=== PATIENT | male | born 1965 | race Caucasian/White ===

== ENCOUNTER → 2018-03-19 14:53 | Outpatient (CLI) | payer OTHER, SELFPAY ==
--- NOTE | 2018-03-19 14:59 | RAD_ITS ---
STUDY: X-RAY CHEST REASON FOR EXAM: Male, 53 years old. Acute bronchitis TECHNIQUE: PA and lateral views of the chest. COMPARISON: None. FINDINGS: The lungs are clear and expanded. There is no demonstrated pleural abnormality. Normal size heart. Normal mediastinum and alfreda. Normal visualized pulmonary arteries. Normal visualized aortic arch and descending thoracic aorta. Normal visualized thoracic spine. Normal visualized ribs, clavicles, and shoulders. There is no demonstrated abnormality of the visualized soft tissue structures of the upper abdomen. RAD/Chest PA and Lateral IMPRESSION: No acute pulmonary process Electronically Signed: Hong Vickers MD at 14:52 EDT , Service support ,
== END ==
PROVIDERS: Family Provider Family Medicine; PCP Family Medicine; Visit Provider Family Medicine
DX: J20.9 Acute bronchitis, unspecified (principal)
CPT/HCPCS: 71046

== ENCOUNTER → 2018-06-06 14:38 | Outpatient (CLI) | payer OTHER, SELFPAY ==
[2013-12-02 08:32] VITALS: BMI 38.5
[2018-06-06 16:40] LABS: Vitamin D,25 Hydroxy 17.4 ng/mL (29.95-100.01)
[2018-06-06 16:45] LABS: Anion Gap 8 (5-15); BUN 19 mg/dL (7-18); BUN/Creat Ratio 16.1 RATIO (10-20); Calcium,Total 8.7 mg/dL (8.5-10.1); Chloride 106 mmol/L (98-107); Cholesterol 236 mg/dL (200); Creatinine, Serum 1.18 mg/dL (0.70-1.30); EST Glomerular Filtration Rate 68 mL/min (>60); Est Glom Filt Rate - Afr Amer 83 mL/min (>60); Glucose 81 mg/dL (74-106); High Density Lipoprotein 29 mg/dL; Potassium 4.1 mmol/L (3.5-5.1); Sodium Level 142 mmol/L (136-145); Thyroid Stim Hormone (TSH) 1.16 uIU/mL (0.358-3.74); Triglycerides 621 mg/dL
== END ==
PROVIDERS: Family Provider Family Medicine; PCP Family Medicine; Visit Provider Family Medicine
DX: Z00.00 Encounter for general adult medical examination without abnormal findings (principal)
CPT/HCPCS: 36415; 80048; 80061; 82306; 84153; 84443; G0103

== ENCOUNTER → 2018-09-08 09:40 | Outpatient (CLI) | payer OTHER, SELFPAY ==
[2013-12-02 08:32] VITALS: BMI 38.5
[2018-09-08 14:49] LABS: Cholesterol 202 mg/dL (200); High Density Lipoprotein 30 mg/dL; Triglycerides 467 mg/dL
== END ==
PROVIDERS: Family Provider Family Medicine; PCP Family Medicine; Visit Provider Family Medicine
DX: E78.5 Hyperlipidemia, unspecified (principal)
CPT/HCPCS: 36415; 80061

== ENCOUNTER → 2019-03-24 09:55 | Outpatient (CLI) | payer OTHER, SELFPAY ==
[2013-12-02 08:32] VITALS: BMI 38.5
[2019-03-24 12:46] LABS: AST(SGOT) 24 U/L (15-37); Alanine Aminotransfer ALT/SGPT 36 U/L (16-61); Albumin, Serum 3.7 g/dL (3.2-5.0); Alkaline Phosphatase 52 U/L (45-117); Bilirubin, Direct 0.07 mg/dL (0.00-0.30); Cholesterol 171 mg/dL (200); Globulin 3.8 g/dL (2.2-4.2); High Density Lipoprotein 30 mg/dL; Protein, Total 7.5 g/dL (6.4-8.2); Triglycerides 365 mg/dL; Very Low Density Lipoprotein 73 mg/dL (5-40)
== END ==
PROVIDERS: Family Provider Family Medicine; PCP Family Medicine; Referring Provider Family Medicine; Visit Provider Family Medicine
DX: E78.5 Hyperlipidemia, unspecified (principal)
CPT/HCPCS: 36415; 80061; 80076

== ENCOUNTER → 2020-02-13 07:42 | Outpatient (CLI) | payer BC, OTHER, SELFPAY ==
[2013-12-02 08:32] VITALS: BMI 38.5
[2020-02-13 08:49] LABS: AST(SGOT) 21 U/L (15-37); Alanine Aminotransfer ALT/SGPT 28 U/L (16-61); Albumin, Serum 3.7 g/dL (3.2-5.0); Alkaline Phosphatase 55 U/L (45-117); Anion Gap 5 (5-15); BUN 16 mg/dL (7-18); Calcium,Total 8.7 mg/dL (8.5-10.1); Chloride 108 mmol/L (98-107); Cholesterol 149 mg/dL (200); Creatinine, Serum 1.07 mg/dL (0.70-1.30); EST Glomerular Filtration Rate 76 mL/min (>60); Est Glom Filt Rate - Afr Amer 92 mL/min (>60); Globulin 3.6 g/dL (2.2-4.2); Glucose 102 mg/dL (74-106); High Density Lipoprotein 26 mg/dL; Potassium 4.4 mmol/L (3.5-5.1); Protein, Total 7.3 g/dL (6.4-8.2); Sodium Level 141 mmol/L (136-145); Thyroid Stim Hormone (TSH) 1.23 uIU/mL (0.358-3.74); Triglycerides 388 mg/dL; Very Low Density Lipoprotein 78 mg/dL (5-40)
== END ==
PROVIDERS: Family Medicine; PCP Family Medicine; Referring Provider Family Medicine; Visit Provider Family Medicine
DX: I10 Essential (primary) hypertension (principal); E66.9 Obesity, unspecified
CPT/HCPCS: 36415; 80053; 80061; 82306; 84403; 84443

== ENCOUNTER 2020-03-02 11:26 | Observation (INO) | payer BC, OTHER, SELFPAY ==
[2020-02-22 16:12] VITALS: BMI 38.5
--- NOTE | 2020-02-24 15:39 | EKG12_ITS ---
Test Reason : PRE-OP Blood Pressure : / mmHG Vent. Rate : 059 BPM Atrial Rate : 059 BPM P-R Int : 190 ms QRS Dur : 100 ms QT Int : 446 ms P-R-T Axes : 068 051 063 degrees QTc Int : 441 ms Sinus bradycardia Otherwise normal ECG Confirmed by LINDA DEAL, AWILDA ([id number]), editor trade journal BREN DYER ([id number]) on 02/29/2020 1:59:12 PM Referred By: Mingo Rosales Confirmed By:AWILDA MCKEON MD
[2020-02-24 16:02] LABS: Hematocrit 42.9 % (40-54); Mean Corpuscular Hgb 33.1 pg (27.0-32.0); Mean Corpuscular Volume 94.7 fL (80-94); Mean Platelet Vol. 10.3 fl (6.2-12.0); Platelet Count 175 K/mm3 (150-450); RBC Distribution Width CV 12.6 % (11.6-14.6); RBC Distribution Width SD 43.7 fl (35.1-43.9); Red Blood Count 4.53 M/mm3 (4.6-6.2); White Blood Count 5.9 K/mm3 (4.4-11.0)
[2020-03-02] VITALS (11 sets, daily range): BP systolic 102–141; BP diastolic 63–84; PULSE 50–98; RESP 16–18; TEMP 36.1–36.7; O2SAT 93–100; BMI 37.3
--- NOTE | 2020-03-02 | HERN_PTH ---
PATIENT: SOLOMON MELGOZA LOC: [facility]3 U#:[id number] AGE/SX: 54/M ROOM: AZ323 RE03/02/[address]: Dr. Mingo Rosales MD : 1965 BED: 1 DIS: 03/03/2020 SPEC #: [id number] RECD: 03/02/20 12:36 STATUS: WES FILI #: [id number] BREANNA: 03/02/20 00:[address]: Mingo Rosales DEPT: SURGICAL PATHOLOGY RECD BY: Iraj Krueger ENTERED: 03/02/20 12:37 SP TYPE: Hernia OTHR DR: Dr. Andrew Lara MD Tissues: HERNIA Procedures: Surgery Specimen Level II HEADER OPERATION: Laparoscopic ventral hernia repair with mesh PRE-OP DIAGNOSIS: Incarcerated ventral hernia TISSUE SUBMITTED: Ventral hernia and contents MICROSCOPIC DIAGNOSIS Soft tissue of ventral abdomen, excision: Hernia sac with fibrosis and minimal chronic inflammation. AM:emily 9/3/20 MICROSCOPIC DESCRIPTION Slides are reviewed. GROSS DESCRIPTION Received in fixative is one container labeled with the patient's name and designated ventral hernia and contents. The specimen consists of a piece of yellow adipose tissue measuring 10 x 8 x 4 cm. Sections do not reveal any mass lesion. Fish Boning Machine Feeder sections are submitted in two cassettes. / SJ:rg 03/02/20 TC:5 CPT: 19768
[2020-03-02] MEDS: Lactated Ringers 1,000 ML 100 ML IV (08:52)
--- NOTE | 2020-03-02 09:03 | PCM.HP.BLA ---
Problem List (1) Incarcerated ventral hernia Status: Acute History and Physical Date of Admission: 03/02/20 Intake Visit Reasons: Hernia Chief Complaint: possible umbilical hernia Risk Management Professional Required: No Accompanied by: Is patient in pain?: Yes Allergies No Known Allergies Allergy (Verified 02/22/20 16:08) Medications aspirin 81 mg tablet,delayed release 81 mg PO DAILY 02/22/20 [History Confirmed 02/22/20] lisinopril 20 mg-hydrochlorothiazide 25 mg tablet 1 tab PO DAILY 02/22/20 [History Confirmed 02/22/20] metoprolol tartrate 50 mg tablet 50 mg PO BID 02/22/20 [History Confirmed 02/22/20] rosuvastatin 10 mg tablet 10 mg PO DAILY 02/22/20 [History Confirmed 02/22/20] [facility] Medical History (Updated 02/22/20 @ 16:[address] Mingo Rosales MD) Hypertension (Chronic) Hypertriglyceridemia (Chronic) Obesity (BMI 30-39.9) (Acute) Sleep apnea (Acute) Incarcerated ventral hernia (Acute) Abdominal pain (Acute) Arthritis (Acute) History of back problems (Acute) Sleep apnea (Acute) Ventral hernia (Acute) Hypertension (Chronic) Surgical History (Updated 02/22/20 @ 16:05 by Brooke Goldberg) history left thumb surgery (Acute) Family History (Updated 02/22/20 @ 16:06 by Brooke Goldberg) Mother Breast cancer Cancer Pancreas/Lung Diabetes Hypertension Father Diabetes Heart disease Hypertension High cholesterol Social History (Updated 02/22/20 @ 16:[address] Mingo Rosales MD) Smoking Status: Never smoker alcohol intake: current substance use type: does not use HPI HPI HPI: SOLOMON MELGOZA, is a 54 M who presents to the office today for surgical consultation regarding a incarcerated ventral hernia. The patient is referred by his primary care is Dr. Andrew Lara a written compromise surgical consult recommendations will return to him. The patient states that he has had a ventral hernia focus at the umbilicus but also surrounding that area for at least 14 years. Last week however for 2 days he had sharp pain in that area and in fact the pain was so severe he had nausea and vomiting. He denies any previous surgical attempt to repair it. He does have significant medical comorbidities. Body weight is 296 pounds. BMI of 38.5. He is a chronic cigarette smoker at least a half a pack per day. He has sleep apnea and requires CPAP. Has hypertension hypercholesterolemia. He works as a welder journeyman. He currently is having degenerative problems involving his left knee. As of February 13, 2020 BUN was 16 and creatinine 1.07 with normal liver function tests. Triglycerides were 388. LDL 45. VLDL 78. Cholesterol is 149. HPI HPI HPI: SOLOMON MELGOZA, is a 54 M who presents to the office today for ROS General General: No weight change, appetite, fatigue, colon cancer, breast cancer or weakness HEENT HEENT: No difficulty swallowing, eye injury, eye surgery, swollen glands or hoarseness Endo Endocrine: No thyroid disease, diabetes mellitus, thyroid cancer, Hair loss, heat intolerance or cold intolerance Skin Skin: No rash or changing moles Breast Breast: No left breast lump, right breast lump, nipple discharge, breast pain, abnormal mammogram, abnormal US or breast enlargement Musc Musculoskeletal: Yes back problems and arthritis; no rheumatoid arthritis, gout or joint pain Cardio Cardiovascular: Yes high blood pressure; no murmur, pacemaker, heart disease, atrial fibrillation, heart attack, heart stent, palpitations, shortness of breat with exertion or chest pain Psych Psychiatric: No depression, anxiety or hearing voices Resp Respiratory: No shortness of breath, Yes sleep apnea, No cough, No COPD, No asthma, No emphysema, No wheezing Gastro Gastrointestinal: Yes abdominal pain, Yes nausea or vomiting, No diarrhea, No constipation, No blood in stool, No acid reflux, No hemorrhoids, No ulcers, No gallbladder problem, No black,tarry stools Tyler Hematologic: No blood thinners, No blood disorders, No bleeding, No anemia, No blood clots Neuro Neurologic: No system reviewed and no additional complaints, except as docu, No as per HPI, No abnormal walking, No abnormal hearing, No abnormal movements, No abnormal speech, No behavioral changes, No burning sensations, No confusion, No seizure-like activity, No unsteadiness, No dizziness, No localized weakness, No frequent falls, No headache(s), No lack of coordination, No loss of vision, No memory loss, No numbness, No other visual disturbances, No radiating pain, No restless legs, No sensory deficit, No fainting, No tingling, No tremor(s), No weakness, No other Exam Const General: cooperative, comfortable, no acute distress Nutritional Appearance: obese Orientation: alert, awake HENNV Head: normal to inspection Eyes General: appearance normal, both eyes and all related structures Chest Breast Palpation: No nipple discharge Other: Increased anterior posterior diameter Resp Effort & Inspection: normal respiratory effort Auscultation: clear to auscultation bilaterally Cardio Rate: regular rate Rhythm: regular rhythm Heart Sounds: no murmurs GI Palpation: soft, no hepatosplenomegaly Auscultation: normal bowel sounds Other: Large umbilical and periumbilical ventral incarcerated hernia. No bowel sounds within that area. Thinning of the umbilical skin without ulceration. Unable to reduce the tissue. Other: Testicles are descended. No distinct inguinal defects Skin General: no rashes or lesions noted Neuro Cognition: normal cognition Extrem General: no calf tenderness Psych Affect: normal affect Assessment & Plan 1. Hernia K46.9 2. Incarcerated ventral hernia K43.6 3. Sleep apnea, unspecified type G47.30 4. Obesity (BMI 30-39.9) E66.9 5. Hypertriglyceridemia E78.1 6. Hypertension, unspecified type I10 Plan 54-year-old gentleman. He has had a long-term chronic incarcerated ventral hernia. It is been progressively significantly enlarging. It is currently incarcerated. He recently had symptoms that would suggest temporary strangulation. Medical comorbidities include obesity and sleep apnea and chronic tobacco use. Unfortunate I do not believe I will be able to behavior modify his issues to the degree required for an excellent repair. There is a significant amount of tissue incarcerated within believe that clinically this is omental tissue. I have offered him a laparoscopic repair. Believe that an incision at the periumbilical area and then freeing of the omentum followed by laparoscopic inspection laparoscopic repair and bilateral tap block would be most efficacious. Absolutely no guarantees of success have been offered. I have vigorously encouraged the patient to cease his tobacco use. We did also discussed benefits of weight loss. He has had an opportunity to ask and have questions answered. I instructed him 3 weeks would be required prior to even light duty. I instructed him likely 6 weeks to return to more normal duties. He is aware of the increased risk of recurrence. He has had an opportunity ask and have questions answered. We did discuss the Covid-19 pandemic. He is aware that the [facility] currently is reporting a low local incidence. He has had an opportunity to ask and have questions answered. He will schedule procedure at his discretion. Copy: Dr. Andrew Rosales M.D., F.A.C.S. Coding Level of Care Code 59884 Diagnoses Hernia K46.9 Incarcerated ventral hernia K43.6 Sleep apnea, unspecified type G47.30 ??Sleep apnea type: unspecified type Obesity (BMI 30-39.9) E66.9 Hypertriglyceridemia E78.1 Hypertension, unspecified type I10 ??Hypertension type: unspecified I have re-examined the patient. There are no clinical changes since date of exam. Procedure Criteria Procedure Type: Elective COVID Risk Discussion: The surgeon/proceduralist and patient have discussed in detail the risk of exposure to and/or potential harm posed by the COVID-19 virus with having a surgery/procedure at this time versus the risk of delaying the surgery/procedure. It is not possible to know either the risk of delaying the surgery or procedure or chance of getting an infection with perfect accuracy, but a joint decision was made between the patient and the surgeon/proceduralist to proceed at this time with the scheduled surgery/procedure as indicated on the consent form.
--- NOTE | 2020-03-02 09:04 | DCINST_ITS ---
Discharge Diet: Light diet - advance as tolerated - if you have questions about your diet instructions, please talk to you doctor. Discharge Activity: May Not Drive - for 3-5 days or while taking narcotic pain medicine. May shower in (days): 1 Lifting Restrictions: 10 pounds Call your doctor if your incision/area has: Continuous Slow Oozing, Sudden Increased Bleeding, Increased Pain/ Swelling, Increased Redness, Foul Smelling Discharge Call your doctor if you observe: Fever of 101 or Higher Suture Line Care: Avoid Pulling/Pushing, Avoid Pinching/Bending Additional Dressing/Incision Instructions:: You may leave the plastic dressings on for 3 days. You may then remove them and leave the Steri-Strips on for an additional 1 week Allergies/Adverse Reactions: Allergies No Known Allergies Allergy (Verified 03/02/20 08:45) Medications to take at Discharge aspirin 81 mg tablet,delayed release 81 mg PO DAILY 02/22/20 lisinopril 20 mg-hydrochlorothiazide 25 mg tablet 1 tab PO DAILY 02/22/20 metoprolol tartrate 50 mg tablet 50 mg PO BID 02/22/20 rosuvastatin 10 mg tablet 10 mg PO DAILY 02/22/20 Primary Care Physician: Andrew Lara MD [Primary Care Provider] - Test Results: Test results from this visit will be discussed in further detail at your follow- up appointment, if applicable. Please Follow Up With: Mingo Rosales MD - [phone] When: Call for appt.: may be phone call or virtual or onsite. 10 days
[2020-03-02] MEDS: 0.9% Normal Saline (Pres. free 10 ML Vial (11:15)
[2020-03-02] MEDS: BUPIVACAINE LIPOSOME/PF 20 ML VIAL OPERA.SITE (11:15)
[2020-03-02] MEDS: Bupivacaine 0.25% 30 ML Vial ×2 (11:15)
--- NOTE | 2020-03-02 11:18 | PCM.OPRPT ---
Problem List (1) Incarcerated ventral hernia Status: Acute Report of Operation Date of Procedure: 03/02/20 Pre-Operative Diagnosis: Incarcerated ventral hernia Post-Operative Diagnosis: Same Surgery/Procedure Performed:: Laparoscopic incarcerated ventral hernia repair with ventral light ST mesh. Laparoscopic guided bilateral tap block. 17.8 x 22.9 cm. Reference #[id number]. Lot number [id number]. Expiry date 05/28/2021 Description of Surgical Findings:: Timeout and informed consent was obtained. 54-year-old gentleman was taken to the operating placement table underwent general endotracheal intubation anesthesia. Ancef Ancef were given intravenously. The abdomen sterilely prepped draped. Ioban dressing was used as well. A curvilinear incision was made inferior to the umbilicus sharp dissection carried down through the subcu tissue a very large amount of omentum and hernia sac was incarcerated. Finally the fascia and the base of the sac to be identified it was incised with the electrocautery. Then having identified the incarcerated omentum used Jennifer clamps to transected and secured that with 0 Vicryl ligatures. I completed the dissection and submitted a sizable specimen hernia sac and omental contents. Now the fascial defect measured at least 6 cm in diameter. I partially repaired that using [id number]-hc-[id number] sutures of 0 Nurolon. I inserted a Carter catheter. The abdomen was insufflated with CO2 to a pressure of 10 mmHg pressure. Two 5 mm port trochars were placed in the left lateral abdomen and 2 fives in the right lateral abdomen. A 17.8 x 22.9 cm piece of ventral light ST mesh had 4 corner sutures of 2-0 Prolene placed. The mesh was inserted then using stab incision and grainy needle technique the mesh was parachuted up to the abdominal wall. Excellent positioning was achieved. The knots were secured. Secure strap was utilized approximately 2 cm and rolls completely around the periphery of the mesh. Central portions of the mesh were further secured to eliminate chance of seroma formation. Absolutely excellent coverage and securement was achieved. The mesh was then irrigated with saline. The greater omentum was placed overlying all of the small bowel. The abdomen was allowed to deflate of the CO2. The remaining fascia at the incision site was closed with simple and ljuhzc-si-mdfxn sutures of 0 Nurolon. Skin edges were approximated with interrupted 4-0 Monocryl subdermal stitches. It is of note that once the laparoscope was inserted a bilateral tap block was guided laparoscopically. 20 cc of Exparel mixed with 60 cc of 0.25% Marcaine and then was diluted to 100 cc of saline was used for solution. Under laparoscopic guidance the correct myofascial plane was identified and bilaterally the local was injected. At the umbilicus then cotton balls Steri-Strips Telfa OpSite dressings applied. Sponge and instrument and needle counts were reported to the surgeon to be correct. Blood loss was minimal. He tolerated the procedure well and was taken to the recovery room in satisfactory addition without apparent complication. Specimens incarcerated omentum and ventral hernia sac. Drains none. Blood loss minimal. Mingo Rosales M.D., F.A.C.S. Type of Anesthesia:: General Anesthesiologist: Carol Cortes
[2020-03-02] MEDS: Lactated Ringers 1,000 ML 70 ML IV (13:07)
[2020-03-02] MEDS: HYDROcodone Bitartrate/Apap 5/325 Tablet PO (13:09)
--- NOTE | 2020-03-02 16:59 | PN_ITS ---
Progress Note Patient is somewhat uncomfortable at a 4-5. No nausea but no flatus. He was able to ambulate once in the halls. He has been able to urinate. I have encouraged mobilization. We will try to provide a nonsteroidal anti- inflammatory agent to assist with pain relief. We will continue with observation. Mingo Rosales M.D., F.A.C.S. STROKE Vital Signs/Narrative: Vital Signs Temp Pulse Resp BP Pulse Ox 03/02/20 15:10 98.1 F 98 18 111/72 97
[2020-03-02] MEDS: Pantoprazole Sodium 40 MG Tablet PO (17:15)
[2020-03-02] MEDS: Ibuprofen 400 MG Tablet 800 MG PO (17:16)
[2020-03-02] MEDS: Lactulose 20 GM/30 ML UDC PO (17:22)
[2020-03-02] MEDS: Atorvastatin Calcium 20 MG Tablet PO (22:13)
[2020-03-02] MEDS: Metoprolol Tartrate 50 MG Tablet PO (22:13)
--- NOTE | 2020-03-02 22:15 | NURSING ---
pt walked in swann several laps, gait steady
[2020-03-03] MEDS: Lactated Ringers 1,000 ML 70 ML IV (02:26)
[2020-03-03] MEDS: Ibuprofen 400 MG Tablet 800 MG PO (02:31)
[2020-03-03 02:33] VITALS: BP 122/70; PULSE 52; RESP 16; TEMP 36.6; O2SAT 95
[2020-03-03] MEDS: Enoxaparin 40 MG/0.4 ML Syringe SC (05:07)
--- NOTE | 2020-03-03 05:55 | PCM.PN.SRG ---
Subjective: Patient is doing well. Is passing flatus. Pain is tolerable at rest. It only escalates with coughing. He has no nausea. He is tolerating clear liquids well. - Physical Exam Vitals/I&O's: Vital Signs Temp Pulse Resp BP Pulse Ox 97.8 F 52 L 16 122/70 H 95 03/03/20 02:33 03/03/20 02:33 03/03/20 02:33 03/03/20 02:33 03/03/20 02:33 Oxygen Delivery Method Room Air Weight: 290 lb 9.108 oz Body Mass Index (BMI) 37.3 Intake and Output for Last 24 Hours 03/01/20 03/02/20 03/03/20 23:59 23:59 23:59 Intake Total 1715 / 1715 1532.17 / 1532.17 Output Total 700 / 700 Balance 1715 / 1715 832.17 / 832.17 Lungs: Clear to auscultation Abdomen: Bowel Sounds Present, Soft, - - Dressings clean and dry Current Medications Acetaminophen (Tylenol) 650 mg PO Q6H PRN PRN PRN Reason: Pain Score 1-10/10 Hydrocodone Bitart/Acetaminophen ([place] 5mg-325mg) 1 - 2 tablet PO Q4H PRN PRN PRN Reason: Pain Score 1-10/10 Last Admin: 03/02/20 13:09 Dose: 1 tablet Documented by: [facility]ir[facility]cot[facility]) [facility] Atorvastatin Calcium (Lipitor) 20 mg PO QHS [facility] Last Admin: 03/02/20 22:13 Dose: 20 mg Documented by: Enoxaparin Sodium (Lovenox) 40 mg SC DAILY@0600 [facility] Last Admin: 03/03/20 05:07 Dose: 40 mg Documented by: Hydrochlorothiazide (Hctz) 25 mg PO DAILY [facility] Lactated Ringer's () 1,000 mls @ 70 mls/hr IV .[id number] [facility] Last Admin: 03/03/20 02:26 Dose: 70 mls/hr Documented by: Ibuprofen (Motrin) 800 mg PO Q8H PRN PRN PRN Reason: Pain Score 1-10/10 Last Admin: 03/03/20 02:31 Dose: 800 mg Documented by: Lisinopril (Zestril) 20 mg PO DAILY [facility] Metoprolol Tartrate (Lopressor (Beta Erlin)) 50 mg PO BID [facility] Last Admin: 03/02/20 22:13 Dose: 50 mg Documented by: Morphine Sulfate () 2 - 4 mg IV Q1H PRN PRN PRN Reason: Pain Score 1-10/10 Morphine Sulfate () 2 - 4 mg IV Q1H PRN PRN PRN Reason: PAIN 1-10/10 Ondansetron HCl (Zofran) 4 mg IV Q8H PRN PRN PRN Reason: Nausea Pantoprazole Sodium (Protonix) 40 mg PO DAILY [facility] Last Admin: 03/02/20 17:15 Dose: 40 mg Documented by: Sodium Chloride () 10 - 40 ml IV UD PRN PRN Reason: SALINE FLUSH Medical Necessity - Tobacco Use Smoking Status: Current every day smoker Tobacco Use: Cigarettes Assessment/Plan All Active Problems (Last Updated 02/22/20 @ 16:30 by Brooke Goldberg) Obesity (BMI 30-39.9) (Acute) Sleep apnea (Acute) Incarcerated ventral hernia (Acute) Excellent progress, patient provided discharge instructions. Will advance diet and discharge.
[2020-03-03 07:43] VITALS: BP 138/80; PULSE 52; RESP 18; TEMP 36.7; O2SAT 98
[2020-03-03 07:49] VITALS: PULSE 52
[2020-03-03] MEDS: hydroCHLOROthiazide 25 MG Tablet PO (07:49)
[2020-03-03] MEDS: Pantoprazole Sodium 40 MG Tablet PO (07:49)
[2020-03-03] MEDS: Aspirin E.C. 81 MG Tablet PO (07:49)
[2020-03-03] MEDS: Metoprolol Tartrate 50 MG Tablet PO (07:49)
[2020-03-03] MEDS: Lisinopril 20 MG Tablet PO (07:50)
== END 2020-03-03 09:00 | disposition home or self-care (01) ==
LOC: SDC 03-03 07:03 → MS3 03-03 07:03
PROVIDERS: Anesthesiology; Admitting Provider Surgery; PCP Family Medicine; Referring Provider Surgery; Visit Provider Surgery
PROC: 0WQF4ZZ Repair Abdominal Wall, Percutaneous Endoscopic Approach (ICD-10-PCS; CPT 49653; principal; 2020-03-02 09:45)
DX: K43.6 Other and unspecified ventral hernia with obstruction, without gangrene (principal); Z11.59 Encounter for screening for other viral diseases; I10 Essential (primary) hypertension; E66.9 Obesity, unspecified; G47.30 Sleep apnea, unspecified; E78.1 Pure hyperglyceridemia; M19.90 Unspecified osteoarthritis, unspecified site; F17.210 Nicotine dependence, cigarettes, uncomplicated; Z68.38 Body mass index [BMI] 38.0-38.9, adult; Z79.82 Long term (current) use of aspirin; Z79.899 Other long term (current) drug therapy
CPT/HCPCS: 00832; 49653; 36415; 85027; 87635; 88302; 93005; 94799; 96372; 99218; 99251; 99406; J7120; C1781; G0378; G0379; G0463; J2405; J3490; U0003

== ENCOUNTER → 2020-08-10 15:56 | Outpatient (CLI) | payer BC, OTHER, SELFPAY ==
[2020-03-02 12:51] VITALS: BMI 37.3
[2020-08-10 18:09] LABS: AST(SGOT) 27 U/L (15-37); Alanine Aminotransfer ALT/SGPT 37 U/L (16-61); Albumin, Serum 3.9 g/dL (3.2-5.0); Alkaline Phosphatase 71 U/L (45-117); Anion Gap 6 (5-15); BUN 22 mg/dL (7-18); Calcium,Total 8.8 mg/dL (8.5-10.1); Chloride 105 mmol/L (98-107); Cholesterol 173 mg/dL (200); EST Glomerular Filtration Rate 74 mL/min (>60); Est Glom Filt Rate - Afr Amer 89 mL/min (>60); Globulin 3.8 g/dL (2.2-4.2); Glucose 91 mg/dL (74-106); High Density Lipoprotein 31 mg/dL; Potassium 4.1 mmol/L (3.5-5.1); Protein, Total 7.7 g/dL (6.4-8.2); Sodium Level 139 mmol/L (136-145); Triglycerides 492 mg/dL
== END ==
PROVIDERS: PCP Family Medicine; Referring Provider Family Medicine; Visit Provider Family Medicine
DX: I10 Essential (primary) hypertension (principal)
CPT/HCPCS: 36415; 80053; 80061

== ENCOUNTER → 2021-03-04 08:23 | Outpatient (CLI) | payer BC, SELFPAY ==
[2021-03-04 09:30] LABS: Anion Gap 5 (5-15); BUN 21 mg/dL (7-18); BUN/Creat Ratio 22.6 RATIO (10-20); Calcium,Total 8.5 mg/dL (8.5-10.1); Chloride 108 mmol/L (98-107); Cholesterol 149 mg/dL (200); Creatinine, Serum 0.93 mg/dL (0.70-1.30); EST Glomerular Filtration Rate 89 mL/min (>60); Est Glom Filt Rate - Afr Amer 108 mL/min (>60); Glucose 99 mg/dL (74-106); High Density Lipoprotein 30 mg/dL; Potassium 4.1 mmol/L (3.5-5.1); Sodium Level 138 mmol/L (136-145); Triglycerides 337 mg/dL; Very Low Density Lipoprotein 67 mg/dL (5-40)
== END ==
PROVIDERS: PCP Family Medicine; Referring Provider Family Medicine; Visit Provider Family Medicine
DX: I10 Essential (primary) hypertension (principal)
CPT/HCPCS: 36415; 80048; 80061

== ENCOUNTER 2021-08-09 16:15 | Outpatient (CLI) | payer BC, SELFPAY ==
[2021-08-09 18:06] LABS: Absolute Lymphocyte Count 1.67 X10^3/uL (0.83-4.51); Absolute Neutrophil Count 3.3 X10^3/uL (2.0-7.7); Basophil# 0.02 X10^3/uL; Basophil% 0.3 % (0-1); Eosinophil# 0.43 X10^3/uL; Eosinophils% 7.1 % (0-5); Hemoglobin 15.7 g/dL (13.0-16.5); Lymphocyte # 1.67 X10^3/ul (0.83-4.51); Lymphocyte % 27.6 % (19-41); Mean Corp Hgb Conc 34.9 g/dL (32-36); Mean Corpuscular Hgb 33.3 pg (27.0-32.0); Mean Corpuscular Volume 95.5 fL (80-94); Monocyte# 0.59 X10^3/uL; Monocyte% 9.8 % (0-10); NRBC Flagged by Analyzer 0 % (0-5); Neutrophil # 3.31 X10^3/uL (2.7-7.7); Neutrophil % 54.9 % (47-70); Platelet Count 179 K/mm3 (150-450); RBC Distribution Width CV 12.7 % (11.6-14.6); RBC Distribution Width SD 44.6 fl (35.1-43.9); Red Blood Count 4.71 M/mm3 (4.6-6.2)
[2021-08-09 18:41] LABS: Anion Gap 5 (5-15); BUN 19 mg/dL (7-18); BUN/Creat Ratio 19.8 RATIO (10-20); Calcium,Total 8.6 mg/dL (8.5-10.1); Chloride 104 mmol/L (98-107); Cholesterol 155 mg/dL (200); Creatinine, Serum 0.96 mg/dL (0.70-1.30); EST Glomerular Filtration Rate 86 mL/min (>60); Est Glom Filt Rate - Afr Amer 104 mL/min (>60); Glucose 89 mg/dL (74-106); High Density Lipoprotein 31 mg/dL; Potassium 4.1 mmol/L (3.5-5.1); Sodium Level 139 mmol/L (136-145); Thyroid Stim Hormone (TSH) 0.97 uIU/mL (0.358-3.74); Triglycerides 343 mg/dL; Very Low Density Lipoprotein 69 mg/dL (5-40)
== END 2021-08-09 23:59 | disposition home or self-care (01) ==
LOC: MFPLAB 16:18
PROVIDERS: PCP Family Medicine; Referring Provider Family Medicine; Visit Provider Family Medicine
DX: R06.02 Shortness of breath (principal)
CPT/HCPCS: 36415; 80048; 80061; 84443; 85025

== ENCOUNTER 2021-08-31 07:10 | Outpatient (CLI) | payer BC, OTHER, SELFPAY ==
--- NOTE | 2021-08-31 13:50 | STRESSREP ---
Stress Test Report Date: 08/31/2021 Procedure: Pharmacologic stress nuclear imaging study Indications: Fatigue, dyspnea on exertion Consent: Per the patient Procedure: Patient initially started as an exercise stress test. He exercised for 2 minutes and 46 seconds on the Aryan protocol. He achieved a work level of 4.6 METS. The resting heart rate was 60 bpm and armani 206 bpm which represents 65% of maximal age-predicted heart rate. Resting blood pressure was 142/84 which armani to 190/80. Patient was unable to continue further on the treadmill due to dyspnea and leg pain. Since he did not achieve target heart rate he was switched to a Lexiscan stress test. The patient underwent pharmacologic (Regadenoson) evaluation with a peak heart rate of 77 beats per minute (47%predicted maximal heart rate) and a peak blood pressure of 150/88 mmHg. The baseline ECG demonstrated normal sinus rhythm. EKG during lexiscan infusion revealed no significant ischemic changes. EKG post infusion revealed no significant ischemic changes. EKG during exercise did not reveal any significant ischemic changes either. [There were no cardiac dysrhythmias pretest, during pharmacologic infusion, or recovery]. [There was no complaint of chest discomfort during pharmacologic infusion or recovery]. The examination was discontinued secondary to completion of protocol. Impression: 1. Lexiscan stress test test is negative for Lexiscan infusion induced EKG changes of ischemia. 2. Lexiscan stress test test is negative for Lexiscan infusion induced chest pain. 3. Results of the nuclear portion of the test is as below 4. Patient initially started as an exercise stress test and did not reach target heart rate and had to be switched to a Lexiscan stress test. His functional capacity is significantly decreased for age. Myocardial perfusion imaging study: Technique: The patient was injected with [] millicuries of technetium 99m Cardiolite and subsequently rest SPECT Cardiolite nuclear imaging was obtained in the horizontal long, vertical long, and short axis views. The patient underwent pharmacologic [Regadenoson 0.4mg] evaluation. Please see above for details. The patient was injected with [] millicuries of technetium 99m Cardiolite and subsequently stress SPECT Cardiolite nuclear imaging was obtained in the horizontal long, vertical long, and short axis views. A gated Cardiolite study at peak stress was obtained. Interpretation: Rest and stress SPECT Cardiolite nuclear imaging status post realignment, normalization, and attenuation correction demonstrate mildly decreased radioisotope uptake in the inferior wall prior to attenuation correction on both the rest and stress images. After attenuation correction there is normal uptake on the inferior wall. This is suggestive of diaphragmatic attenuation artifact. In a small portion of the apex there is mild decrease in the radioisotope uptake on the stress images compared to the rest images suggestive of ischemia in this region. Gated images reveal no significant regional wall motion abnormalities. The reported LVEF is greater than 70%. Impression: 1. Mild apical ischemia cannot be excluded 2. Estimated ejection fraction is greater than 70%. This note was generated with [employer] software. It may contain incorrect words, spelling, and punctuation that were not noted in checking the note before signing.
== END 2021-08-31 23:59 | disposition home or self-care (01) ==
PROVIDERS: PCP Family Medicine; Referring Provider Family Medicine; Visit Provider Family Medicine
DX: R06.02 Shortness of breath (principal)
CPT/HCPCS: 78452; 93017; A9500; A4216; J2785

== ENCOUNTER → 2022-12-29 | Outpatient (CLI) | payer BC, OTHER, SELFPAY ==
[2022-12-29 10:00] LABS: Anion Gap 6 (5-15); BUN 20 mg/dL (7-18); Calcium,Total 8.4 mg/dL (8.5-10.1); Chloride 107 mmol/L (98-107); Cholesterol 152 mg/dL (200); Creatinine, Serum 1.05 mg/dL (0.70-1.30); EST Glomerular Filtration Rate 77 mL/min (>60); Est Glom Filt Rate - Afr Amer 93 mL/min (>60); Glucose 106 mg/dL (74-106); High Density Lipoprotein 31 mg/dL; Potassium 4.2 mmol/L (3.5-5.1); Sodium Level 140 mmol/L (136-145); Triglycerides 361 mg/dL; Very Low Density Lipoprotein 72 mg/dL (5-40)
== END | disposition home or self-care (01) ==
LOC: LAB 08:50
PROVIDERS: PCP Family Medicine; Referring Provider Family Medicine; Visit Provider Family Medicine
DX: I10 Essential (primary) hypertension (principal)
CPT/HCPCS: 36415; 80048; 80061

== ENCOUNTER → 2023-03-18 | Outpatient (CLI) | payer OTHER, SELFPAY ==
--- NOTE | 2023-03-18 15:58 | RAD_ITS ---
EXAM: XR LEFT KNEE COMPLETE, 4 OR MORE VIEWS CLINICAL INDICATION: PAIN PAIN TECHNIQUE: Four or more views of the left knee. COMPARISON: X-ray left knee 10/08/2016. FINDINGS: BONES/JOINTS: There is mild degenerative arthrosis of the patellofemoral articulation. There is a small knee joint effusion. There is mild degenerative arthrosis of the medial femorotibial articulation. No acute fracture. No subluxation. Normal alignment. No sclerotic or destructive changes observed. SOFT TISSUES: Unremarkable. No soft tissue swelling or gas. No radiopaque foreign body. RAD/Knee 4 or More Views IMPRESSION: 1. Small joint effusion. 2. Mild degenerative changes. 3. No demonstrated fracture, dislocation, or destructive osseous lesion. Electronically Signed: Rashawn Dunbar MD at 8:03 EDT Reading Location ID and State: [facility] / [place] , Service support ,
== END | disposition home or self-care (01) ==
PROVIDERS: PCP Family Medicine; Referring Provider Family Medicine; Visit Provider Family Medicine
DX: M25.562 Pain in left knee (principal)
CPT/HCPCS: 73564

== ENCOUNTER → 2023-06-27 | Outpatient (CLI) | payer OTHER, SELFPAY ==
--- NOTE | 2023-06-27 15:50 | CT_ITS ---
STUDY: CTA HEAD AND NECK WITH CONTRAST REASON FOR EXAM: Male, 58 years old. sycope RADIATION DOSAGE (If Supplied By Facility): CTDIvol = ( 18.17 ) mGy, DLP = ( 775.93 ) mGycm TECHNIQUE: CT angiography was performed with a multi-detector CT scanner. Data acquisition was obtained from the skull base through the vertex following intravenous administration of IV 100mL Isovue-370. MIP images were reconstructed from the axial data set. Post-processing of the angiographic images was performed, with multiplanar reformation and 3D reconstruction. Individualized dose optimization techniques were used for this CT. COMPARISON: No relevant priors. FINDINGS: Normal bilateral petrous carotid arteries. Normal right cavernous carotid artery with a normal supraclinoid bifurcation. Normal left cavernous carotid artery with a normal supraclinoid bifurcation. Normal right A1 segments of the anterior cerebral artery. There is non-visualization of the left A1 segment of the anterior cerebral arteries consistent with either aplastic development or an occlusion. Normal intact anterior communicating artery (ACOM). Normal bilateral A2 segments of the anterior cerebral arteries. Normal right M1 and M2 segments of the middle cerebral arteries, with a normal M1 bifurcation. Normal left M1 and M2 segments of the middle cerebral arteries, with a normal M1 bifurcation. Normal right posterior communicating artery (PCOM). Normal left posterior communicating artery (PCOM). Normal bilateral vertebral arteries. Normal basilar artery with a normal basilar bifurcation. The visualized bilateral superior cerebellar (SCA) arteries are normal. Normal bilateral P1, P2 and visualized P3 segments of the posterior cerebral arteries. There is no demonstrated aneurysm of the [place] of [place]. There is no demonstrated abnormality of the visualized brain. AORTIC ARCH: Normal visualized aortic arch. Normal origins of the brachiocephalic, left common carotid, and left subclavian arteries. RIGHT CAROTID ARTERIES: Normal right common carotid artery (CCA). Normal right common carotid bulb. Normal origin of the right internal carotid (ICA) artery without a hemodynamically significant stenosis. Normal visualized cervical portion of the right internal carotid artery. Normal origin of the right external carotid artery (ECA). LEFT CAROTID ARTERIES: Normal left common carotid artery (CCA). Normal left common carotid bulb. Normal origin of the left internal carotid (ICA) artery without a hemodynamically significant stenosis. Normal visualized cervical portion of the left internal carotid artery. Normal origin of the left external carotid artery (ECA). VERTEBRAL ARTERIES: Normal bilateral vertebral arteries. CT/CTA Neck W/WO Contrast IMPRESSION: Normal CTA Head and neck with contrast. Sensitivity limited without 3-D reformats. An addendum will be performed if and when they become available. Pending Final Proof Editing
[2023-06-27 16:05] LABS: CREATININE FINGERSTICK < 1.0 mg/dL (0.70-1.30); EGFR FINGERSTICK > 60.0000 mL/min (>60)
== END | disposition home or self-care (01) ==
LOC: CT 15:39
PROVIDERS: PCP Family Medicine; Referring Provider Family Medicine; Visit Provider Family Medicine
DX: R55 Syncope and collapse (principal)
CPT/HCPCS: 70498; Q9967

== ENCOUNTER → 2023-07-06 | Outpatient (CLI) | payer OTHER, SELFPAY ==
--- OUTSIDE RECORDS SUMMARY | 2023-07-06 08:25 | XMS RPT_ITS | CCD ---
Author Name Unknown Address [address] [place] [address] Organization [facility] Care Team Providers Care Network Management Specialist Name Role Phone Unavailable Primary Care Provider Flora Lara MD, Andrew Aguila Primary Care Provider Marco DEAL, Andrew Aguila Primary Care Provider Marco DEAL, Andrew Howell Primary Care Provider Medications Current Medications Medication Drug Class(es) Dates Sig (Normalized) Sig (Original) hydrALAZINE hydrochloride 25 mg oral tablet (5 sources) Arteriolar Vasodilator Start: 05-30-2022 End: 05-27-2023 take 1 tablet by mouth twice daily hydrALAZINE (APRESOLINE) 25 mg tablet Take 1 tablet by mouth twice daily. 180 tablet 0 11/28/2022 05/27/2023 Active Completed/Discontinued Medications Medication Drug Class(es) Dates Sig (Normalized) Sig (Original) aspirin 81 mg delayed release oral tablet (4 sources) Platelet Aggregation Inhibitor, Nonsteroidal Anti-inflammatory Drug Start: 12-28-2021 End: 12-28-2022 take 1 tablet by mouth once daily aspirin, enteric coated (ASPIRIN, ENTERIC COATED) 81 mg EC tablet Take 1 tablet by mouth once daily. 90 tablet 3 12/28/2021 Active Results Test Name Value Interpretation Reference Range Facil ity Vital Signs Date Time Vital Sign Value Performing Clinician Milka mondragon 11-09-2021 11:34-0400 Body height 188 cm Tiffany Mejia Work Phone: [facility] 11-09-2021 11:34-0400 Body weight 136.99 kg Tiffany Mejia Work Phone: [facility] 11-09-2021 11:34-0400 Diastolic blood pressure 73 mm[Hg] Tiffany Lujan MD Work Phone: [facility] 11-09-2021 11:34-0400 Heart rate 74 /min Tiffany Mejia Work Phone: [facility] 11-09-2021 11:34-0400 SaO2% (BldA) [Mass fraction] 96 % Tiffany Lujan MD Work Phone: [facility] 11-09-2021 11:34-0400 Systolic blood pressure 150 mm[Hg] Tiffany Lujan MD Work Phone: [facility] Encounters Encounter Date Encounter Type Care Provider Facility Start: 02-27-2023 Telephone encounter Tiffany Lujan MD Work Phone: [facility] Cardiology Plan of Treatment Date Care Activity Detail Author Start: 09-21-2024 DIABETES SCREEN DIABETES SCREEN [facility] Start: 03-01-2023 Influenza vaccination [facility] Start: 07-01-2022 [facility] Start: 03-01-2022 Influenza vaccination INFLUENZA (#1) [facility] Start: 07-01-2021 DEPRESSION ASSESSMENT [facility] Start: 2019 PROSTATE CANCER SCRE ENING DISCUSSION PROSTATE CANCER SCREENING DISCUSSION [facility] Start: 2014 SHINGRIX VACCINE (1 of 2) SHINGRIX V ACCINE (1 of 2) [facility] Start: 2009 COLOGUARD (FIT-DNA) COLOGUARD (FIT-D NA) [facility] Start: 2009 Colonoscopy COLONOSCOPY [facility] Start: 2009 COLORECTAL CANCER SCREENING COLORECTAL CANCER SCREENING [facility] Start: [address] COLONOGRAPHY [facility] Start: 2009 FECAL OCCULT BLOOD FECAL OCCULT BLOO D [facility] Start: 2009 SIGMOIDOSCOPY SIGMOIDOSCOPY [facility] Start: 1999 LIPID SCREEN LIPID SCREEN [facility] Start: 1983 Urine microalbumin profile DTAP,TDAP ,TD (1 - Tdap) [facility] Start: 1982 HEPATITIS C SCREENING HEPATITIS C SC BASHIR [facility] Start: 1982 HIV SCREENING HIV SCREENING [facility] Start: 1970 PNEUMOCOCCAL (1 - PCV) PNEUMOCOCCAL (1 - PCV) [facility] Start: 1964 COVID-19 VACCINE (#1) COVID-19 VACCI NE (#1) [facility] Start: 1964 HEPATITIS B (1 of 3 - 3-dose series) HEPATITIS B (1 of 3 - 3-dose series) [facility] Payers Date Payer Category Payer Unknown [id number] Social History Date Type Detail Facility Tobacco smoking stat [facility] Tobacco smoking consumption unknown [facility] Start: 1965 Sex Assigned At Not on file [facility] Start: 05-04-2022 Tobacco smoking stat [facility] Smokes tobacco daily [facility] History of tobacco use Cigarette Smoker [facility] Start: 05-04-2022 Tobacco use and exposure Smokeless t obacco non-user [facility] Start: 05-04-2022 Alcohol intake Current drinke r of alcohol (finding) [facility] Start: 05-04-2022 History of Social function [facility] Start: 05-04-2022 Tobacco use panel [facility] Note 02-27-2023 Telephone Encounter - Dee Luis RN - 02/27/2023 10:50 AM EDT Note Date & Type Note Facility 02-27-2023 Miscellaneous Notes Formattin g of this note might be different from the original. Fax from [facility] for a RF on his ASA 81 mg 1 po daily. This was marked as denied and faxed back. I also put a note on it asking them to have him call to schedule an appt. I tried calling him a few times in November but he never called me back. I even mailed him a letter asking him to call. Dee Luis RN February 27, 2023 10:51 AM documented in this encounter [facility] Note 11-28-2022 Telephone Encounter - Dee Luis RN - 11/28/2022 10:46 AM EDT Note Date & Type Note Facility 11-28-2022 Miscellaneous Notes Formattin g of this note might be different from the original. Fax from [facility] [place] for a RF on hydralazine 25 mg 1 BID. Last seen: 12-14-21 Next appt: n/a (left msg for Solomon to schedule a yearly follow up appt). Dee Luis RN November 28, 2022 10:53 AM documented in this encounter [facility] Note 05-21-2022 Telephone Encounter - Dee Luis RN - 05/21/2022 4:27 PM ESTTelephone Encounter - Nora Levine - 05/21/2022 1:52 PM EST Note Date & Type Note Facility 05-21-2022 Miscellaneous Notes Formattin g of this note might be different from the original. Pt called in needed his lisinopril / HCTZ refilled. Last seen: 12-14-21 Next appt: n/a Dee Luis RN Out x1 week documented in this encounter [facility] Clinical Note 09-21-2021 Note Date & Type Note Facility 09-21-2021 Note DATE OF SERVICE: PROCEDURE: Left heart catheterization. BRIEF HISTORY: A 56-year-old white male who recently had a nuclear stress test with ejection fraction 70% with apical ischemia. Patient has been having dyspnea on exertion and is morbidly obese, treated for hypertension, seizure disorder, obstructive sleep apnea on CPAP. He has a history of vasectomy and hernia repair, right hand surgery. He is a heavy smoker for years. His is a smoker as well. He has a family history for premature coronary artery disease in his father. He uses 6-7 beers per day, more on the weekends. He is referred for left heart catheterization plus revascularization. Risks and benefits discussed with the patient and he was consented. Preprocedure labs within normal. PROCEDURE DETAILS: Patient brought to the cardiac catheterization laboratory, draped and positioned in the usual fashion. Right radial artery approach under complete aseptic and sterile condition, 2% Xylocaine without epinephrine was used for local anesthesia. Using modified Seldinger technique, a 5-[place] arterial sheath was [facility] PATIENT NAME: SOLOMON MELGOZA [address] MEDICAL REC #: [id number] [place] [address] ADMIT DATE: DISCHARGE DATE: CARDIAC CATH ATTENDING PHY: Lito Solorio MD placed. Right radial artery angiography was performed utilizing 5-[place] multipurpose and 4-[place] JL4 catheters. At the conclusion of the procedure, arterial sheath was removed, hemostasis secured by QuikClot, and the patient was transferred back to same-day unit in stable condition. COMPLICATIONS: None. Results of the procedure were discussed with the patient and his and their close friend who works for our cardiovascular data section. RESULTS: 1. Hemodynamic: There was no gradient across the aortic valve. LVEDP 18. 2. Angiographic: a. Left ventriculography performed with an PATRICIA projection with a normal left ventricular ejection fraction estimated 50% to 55% with severe inferior diaphragmatic hypokinesis. b. Coronary angiography: (1) Left main: Large-caliber vessel with no angiographic evidence of disease, normally bifurcates into LAD and nondominant circumflex. (2) Left anterior descending coronary artery: Large-caliber vessel reaches and wraps [facility] PATIENT NAME: SOLOMON MELGOZA [address] MEDICAL REC #: [id number] [place] [address] ADMIT DATE: DISCHARGE DATE: CARDIAC CATH ATTENDING PHY: Lito Solorio MD around the apex, type 3 LAD with mid vessel up to 40% plaque disease, diagonal with 20% to 30% plaque disease. (3) Circumflex coronary artery disease: Nondominant vessel, gave origin to small-caliber obtuse marginal branch with mid vessel up to 40% plaque disease. Collaterals noted to the totally occluded RCA. (4) Right coronary artery: Mid vessel total occlusion of the moderate-size acute marginal branch, and there are some [id number]-[id number]-gjygk collaterals. CONCLUSION: 1. Normal left ventricular ejection fraction with wall motion abnormalities as above, ejection fraction 50% to 55%. 2. Single-vessel occlusive coronary artery disease. a. Left main: Normal. b. Left anterior descending: Up to 40% mid-vessel disease. c. Circumflex coronary artery: Nondominant mid-vessel 40% plaque disease. d. Right coronary artery: Dominant mid-vessel total occlusion of fmowj-ap-yerbo, wium-cr-[id number] collaterals. Lito Solorio MD [facility] PATIENT NAME[facility] REC #: [id number] [place] [address] ADMIT DATE: DISCHARGE DATE: CARDIAC CATH ATTENDING PHY: Lito Solorio MD /[id number] SSI File#: [id number] CC: Ariella Lujan MD CC: Lito Solorio MD END OF DOCUMENT / CHANGE LOG FOLLOWS Last Edited By Elec. Signed By Lito Solorio MD #NINI Lito Solorio MD #HOLLIS on 09/27/2021 17:33 ET on 09/27/2021 17:33 ET Revision Number - 2 Verified/Reviewed by 09/27/[address] [facility] PATIENT NAME: SOLOMON MELGOZA [facility] [address] MEDICAL REC #: [id number] [place] [address] ADMIT DATE: DISCHARGE DATE: CARDIAC CATH ATTENDING PHY: Lito Soolrio MD [facility] Summary Purpose Family History No Family History Records FoundNo Family History Records Found Advance Directives No Advanced Directives Records FoundNo Advanced Directives Records Found Health Concerns Infection Onset Date Last Indicated Resolved Time COVID-19 Rule-Out 09/21/2021 09/21/2021 12/09/2021 8:53 PM EDT Additional Source Comments Source Comments (unrecognize d section and content) In the event this informatio n is protected by the Federal Confidentiality of Alcohol and Drug Abuse Patient Records regulations: The Federal rules restrict any use of the information to criminally investigate or prosecute any alcohol or drug abuse patient.[facility] the event this information is protected by the Federal Confidentiality of Alcohol and Drug Abuse Patient Records regulations: The Federal rules restrict any use of the information to criminally investigate or prosecute any alcohol or drug abuse patient.[facility] System[facility] the event this information is protected by the Federal Confidentiality of Alcohol and Drug Abuse Patient Records regulations: The Federal rules restrict any use of the information to criminally investigate or prosecute any alcohol or drug abuse patient.[facility] System[facility] the event this information is protected by the Federal Confidentiality of Alcohol and Drug Abuse Patient Records regulations: The Federal rules restrict any use of the information to criminally investigate or prosecute any alcohol or drug abuse patient.[facility] System[facility] the event this information is protected by the Federal Confidentiality of Alcohol and Drug Abuse Patient Records regulations: The Federal rules restrict any use of the information to criminally investigate or prosecute any alcohol or drug abuse patient.[facility] (unrecognized sect ion and content) No Status Records FoundNo Status Records Found INFORMATION SOURCE (unrecogn ized section and content) DATE CREATED AUTHOR AUTHOR'S ORGANIZ ATION 02/28/2023 [facility] Care Teams (unrecognized sec tion and content) Network Management Specialist Relationship Specialty Start Date End Date Andrew Lara MD PCP - General Family Medicine 04/17/16 Network Management Specialist Relationship Specialty Start Date End Date Andrew Lara MD PCP - General Family Medicine 04/17/16 Network Management Specialist Relationship Specialty Start Date End Date Andrew Lara MD PCP - General Family Medicine 04/17/16 Reason for Visit (unrecogniz ed section and content) Reason Onset Date Comments Refill Request 11/28/2022 hydralazine Reason Comments Medication Problem ASA refill - denied FOR RECORDS PERTAINING TO PATIENTS WHO ARE OR HAVE BEEN ENROLLED IN A CHEMICAL DEPENDENCY/SUBSTANCEABUSE PROGRAM, SOME INFORMATION MAY BE OMITTED. This clinical summary was aggregated from multiple sources. Caution should be exercised in using it in the provision of clinical care. This summary normalizes information from multiple sources, and as a consequence, information in this document may materially change the coding, format and clinical context of patient data. In addition, data may be omitted in some cases. CLINICAL DECISIONS SHOULD BE BASED ON THE PRIMARY CLINICAL RECORDS. [facility]. provides no warranty or guarantee of the accuracy or completeness of information in this document.
[2023-07-06 09:14] LABS: AST(SGOT) 29 U/L (15-37); Alanine Aminotransfer ALT/SGPT 40 U/L (16-61); Albumin, Serum 3.6 g/dL (3.2-5.0); Alkaline Phosphatase 52 U/L (45-117); Anion Gap 6 (5-15); BUN 15 mg/dL (7-18); BUN/Creat Ratio 15.3 RATIO (10-20); Calcium,Total 8.5 mg/dL (8.5-10.1); Chloride 106 mmol/L (98-107); Cholesterol 148 mg/dL (200); Creatinine, Serum 0.98 mg/dL (0.70-1.30); EST Glomerular Filtration Rate 83 mL/min (>60); Est Glom Filt Rate - Afr Amer 101 mL/min (>60); Globulin 3.7 g/dL (2.2-4.2); Glucose 107 mg/dL (74-106); High Density Lipoprotein 34 mg/dL; PSA,Total - Annual Screen 0.63 ng/mL (0.00-4.00); Potassium 4.2 mmol/L (3.5-5.1); Protein, Total 7.3 g/dL (6.4-8.2); Sodium Level 139 mmol/L (136-145); Triglycerides 244 mg/dL; Very Low Density Lipoprotein 49 mg/dL (5-40)
== END | disposition home or self-care (01) ==
LOC: LAB 08:23
PROVIDERS: PCP Family Medicine; Referring Provider Family Medicine; Visit Provider Family Medicine
DX: E78.5 Hyperlipidemia, unspecified (principal); Z12.5 Encounter for screening for malignant neoplasm of prostate
CPT/HCPCS: 36415; 80053; 80061; 84153; G0103

== ENCOUNTER → 2024-08-21 | Outpatient (CLI) | payer OTHER, SELFPAY ==
[2024-08-21 18:22] LABS: AST(SGOT) 23 U/L (15-37); Alanine Aminotransfer ALT/SGPT 35 U/L (16-61); Albumin, Serum 3.8 g/dL (3.2-5.0); Alkaline Phosphatase 53 U/L (45-117); Anion Gap 7 (5-15); BUN 18 mg/dL (7-18); BUN/Creat Ratio 20.4 RATIO (10-20); Chloride 103 mmol/L (98-107); Cholesterol 155 mg/dL (200); Creatinine, Serum 0.88 mg/dL (0.70-1.30); EST Glomerular Filtration Rate 94 mL/min (>60); Est Glom Filt Rate - Afr Amer 113 mL/min (>60); Glucose 90 mg/dL (74-106); High Density Lipoprotein 43 mg/dL; PSA,Total - Annual Screen 0.66 ng/mL (0.00-4.00); Potassium 3.7 mmol/L (3.5-5.1); Protein, Total 7.8 g/dL (6.4-8.2); Sodium Level 138 mmol/L (136-145); Triglycerides 187 mg/dL; Very Low Density Lipoprotein 37 mg/dL (5-40)
== END | disposition home or self-care (01) ==
LOC: MFPLAB 16:37
PROVIDERS: PCP Family Medicine; Referring Provider Family Medicine; Visit Provider Family Medicine
DX: I10 Essential (primary) hypertension (principal); Z12.5 Encounter for screening for malignant neoplasm of prostate
CPT/HCPCS: 36415; 80053; 80061; 84153; G0103

== ENCOUNTER → 2024-11-11 | Outpatient (CLI) | payer OTHER, SELFPAY ==
--- NOTE | 2024-11-11 14:39 | STRESSREP ---
Stress Test Report Pharmacologic myocardial perfusion stress test. 59-year-old man with a history of coronary artery disease and previous inferior apical ischemia Resting EKG demonstrates sinus rhythm with a rate of 67 bpm. Resting blood pressure is 148/96 mmHg. 0.4 mg of regadenoson was infused per usual protocol followed by rapid intravenous saline flush injection. Continuous EKG monitoring was performed. The maximum heart rate was 76 bpm which was 50% of max impacted heart rate the maximum workload was 1 metabolic equivalent. At rest there were no ST or T wave changes noted to suggest ischemia and at peak infusion nonspecific ST changes were noted which did not meet the criteria for ischemia. No clinical angina is noted. The final blood pressure was 144/80 mmHg. Myocardial perfusion protocol. 15 mCi of technetium 99m sestamibi was injected at rest. 0.4 mg of regadenoson was infused per usual protocol. At peak infusion 44.6 mCi of technetium 99m sestamibi was injected stress images were obtained stress and rest images were reconstructed and compared in the short axis vertical long and horizontal long axis. Gated images were also obtained. Perfusion SPECT analysis: Review of the stress images demonstrate normal uptake of tracer noted in all areas of the myocardium except for small portion of the inferior apical wall with reduced perfusion.. The resting images similar demonstrated normal uptake of tracer noted in all areas of the myocardium. Reversibility is noted in the inferior apical wall suggestive of inferoapical ischemia. Gated SPECT analysis: The gated ejection fraction is 59%. Conclusion: Abnormal pharmacologic myocardial perfusion stress test. Preserved ejection fraction. Inferoapical ischemia unchanged from prior.
== END | disposition home or self-care (01) ==
LOC: CVS 06:09
PROVIDERS: PCP Family Medicine; Referring Provider Internal Medicine Cardiovascular Disease; Visit Provider Internal Medicine Cardiovascular Disease
DX: I25.10 Atherosclerotic heart disease of native coronary artery without angina pectoris (principal)
CPT/HCPCS: 78452; 93017; A9500; A4216; J2785

== ENCOUNTER → 2024-11-12 | Outpatient (CLI) | payer OTHER, SELFPAY ==
--- NOTE | 2024-11-12 14:52 | ART_ITS ---
Reason For Study Reason For Study: Claudication Procedure A bilateral lower extremity continuous wave Doppler with analog waveform analysis,segmental pressures,and ankle brachial indexes without exercise. Left Segmental Pressures Left brachial= 153mmHg. Left posterior tibial artery = 170mmHg. Left dorsalis pedis artery = 166mmHg. Left digit = 144 mmHg. The left dorsalis pedis waveforms are triphasic. The left posterior tibial artery waveforms are triphasic. Right Segmental Pressures Right brachial= 151mmHg. Right posterior tibial artery = 172mmHg. Right dorsalis pedis artery = 170mmHg. Right digit = 142 mmHg. The right dorsalis pedis waveforms are triphasic. The right posterior tibial artery waveforms are triphasic. Indices The right ankle brachial index by the dorsalis pedis is 1.11. The right ankle brachial index by the posterior tibial artery is 1.12. The right digital-brachial index is 0.93. The left ankle brachial index by the dorsalis pedis is 1.08. The left ankle brachial index by the posterior tibial artery is 1.11. The left digital-brachial index is 0.94. VL/Lower Ext Art Exam w/o Exercis Interpretation Summary Right GLORY 1.12, normal. TBI and Doppler/PVR waveforms of the right leg normal a t rest. Left GLORY 1.11, normal. TBI and Doppler/PVR waveforms of the left leg normal at rest. Ordering Physician: Delta Nova Referring Physician: Andrew Lara Performed By: Nahomy Wolff RVT
== END | disposition home or self-care (01) ==
LOC: CVS 14:51
PROVIDERS: PCP Family Medicine; Referring Provider Internal Medicine Cardiovascular Disease; Visit Provider Internal Medicine Cardiovascular Disease
DX: I73.9 Peripheral vascular disease, unspecified (principal)
CPT/HCPCS: 93923

== ENCOUNTER → 2025-02-12 | Outpatient (CLI) | payer OTHER, SELFPAY ==
--- NOTE | 2025-02-12 11:46 | RAD_ITS ---
PROCEDURE: TOE(S) MIN 2 VIEWS 02/12/2025 REASON FOR EXAM: TOE PAIN/ LEFT FOOT TECHNIQUE: TOE(S) MIN 2 VIEWS Laterality: Left foot COMPARISON: None FINDINGS: No visible fracture. Normal alignment. Soft tissue swelling. RAD/Toe(s) Min 2 Views IMPRESSION: Soft tissue swelling. Reading Location: [facility]
== END | disposition home or self-care (01) ==
LOC: MTRAD 11:42
PROVIDERS: PCP Family Medicine; Referring Provider Family Medicine; Visit Provider Family Medicine
DX: M79.675 Pain in left toe(s) (principal)
CPT/HCPCS: 73660

== ENCOUNTER 2025-02-17 13:06 | Outpatient (RCR) | payer OTHER, SELFPAY ==
[2025-02-17 13:23] VITALS: BP 151/68; PULSE 75; RESP 18; TEMP 36.2; BMI 38.7
--- NOTE | 2025-02-17 14:20 | HP.PCM_ITS ---
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 Patient is presenting today for evaluation and referral from primary doctor for concerns of a full-thickness wound to the left distal second digit. Patient was seen by his primary doctor and placed on oral antibiotics, Keflex and Bactrim. Patient has been doing some dressing changes but no treatment thus far to the full-thickness wound. 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 Patient does have a extensive past medical history of alcoholism and myocardial infarction. Overall he has no pain to the left foot. He denies trauma. Denies constitutional symptoms. Other pedal complaints at this time. COUNTS INCLUDE 234 BEDS AT THE [facility] Medical History Neuropathy CAD (coronary artery disease) Dyspnea on exertion Hyperlipidemia Essential hypertension Hypertriglyceridemia Obesity (BMI 30-39.9) Sleep apnea Incarcerated ventral hernia Arthritis History of back problems Home Medications Medication Instructions Recorded Last Taken Type meloxicam 15 mg tablet 15 mg PO QDAY 09/02/24 Unkno wn History pregabalin 50 mg capsule (Lyrica) 50 mg PO TID 5 Unknown History rosuvastatin 20 mg tablet (Crestor) 20 mg PO QDAY 11/22 Unknown History hydrochlorothiazide 25 mg tablet 25 mg PO QAM #90 tabs 10/21/24 Unknown Rx lisinopril 40 mg tablet 40 mg PO QDAY #90 tabs 10/21 Unknown Rx semaglutide (weight loss) 0.5 1 mg subcut QWEEK Unknown History mg/0.5 mL subcutaneous pen injector cephalexin 500 mg capsule 500 mg PO TID 02/17/25 Unkno wn History semaglutide 1 mg/0.2 mL mg subcut 02/17/25 Unknown H istory subcutaneous syringe sulfamethoxazole 800 2 tab PO BID 02/17/25 Unknow n History mg-trimethoprim 160 mg tablet Allergy/AdvReac Type Severity Reaction Status Date / Time No Known Allergies Allergy Verified 02/17/25 13:44 Family History Mother Breast cancer Cancer Pancreas/Lung Diabetes Hypertension Father Diabetes Heart disease Hypertension High cholesterol Surgical History History of hand surgery Social History Smoking Status: Current every day smoker alcohol intake: current substance use type: does not use Vital Signs Vital Signs Vital Signs: 02/17/25 13:23 Temperature 97.2 F L Temperature Source Temporal Pulse Rate 75 Respiratory Rate 18 Blood Pressure 151/68 H Blood Pressure Mean 95 Blood Pressure Source Monitor Blood Pressure Position Semi-Fowlers Blood Pressure Location Right Arm Oxygen Delivery Method Room Air Weight Weight: 129.727 kg Body Mass Index (BMI) 38.7 Physical Exam Narrative Vascular: DP and PT pulse are palpable to the left lower extremity. CFT is brisk. Blanchable erythema appreciated to the left second digit. Skin temperature great is warm to warm from proximal ankles to distal digit to the left lower extremity. No focal increase is noted. Neurological: Light touch is intact. Patient does not respond to painful stimuli. Dermatological: Full-thickness wound to the distal aspect of the left second digit measuring 0.9 x 0.9 x 0.1 cm. Wound base is granular with no sign of infection. Blanchable erythema is noted. Excisional debridement down to and including subcutaneous tissue with a number 3 mm dermal curette to the full-thickness wound to the left distal aspect of the second digit done without incident.. Predebridement measurement was 0.7 x 0.8 x 0.1 cm. Postdebridement measurement is 0.9 x 0.9 x 0.1 cm. Musculoskeletal: No pain to palpation of full-thickness wound to left second digit. No pain with calf pressure. Evidence of hammertoe contracture appreciated to the left second digit which is reducible. Debridement Note Debridement Note Debridement Free Text: Excisional debridement down to and including subcutaneous tissue with a number 3 mm dermal curette to the full-thickness wound to the left distal aspect of the second digit done without incident.. Predebridement measurement was 0.7 x 0.8 x 0.1 cm. Postdebridement measurement is 0.9 x 0.9 x 0.1 cm. Post-Debridement Measurements and Additional Note: Post-Debridement Measurements/Treatment WC - Nurse 1 - General Ulcer Assessment Start: 02/17/25 13:23 Freq: Status: Active Protocol: MAXIMILIAN Activity Type Activity Date Activity User E-sign Co-sign Detail Recorded Client Recorded Date Recorded By Document 02/17/25 13:23 KW [id number] 02/17/25 13:42 KW 02/17/25 13:23 WC - Today's Visit Information Type of service Initial Visit Arrival Mode Ambulatory Accompanied by Patient Identification Verified (Name & Yes ) Height and Weight Height 6 ft Weight 129.727 kg Weight in Pounds 286.0 lbs Weight Measurement Method Stated by Patient Body Mass Index (BMI) 38.7 BMI Classification Obese Vital Signs Temperature (97.8 F-99.1 F) 97.2 F L Temperature Source Temporal Pulse Rate (60-100) 75 Pulse Location Monitor Respiratory Rate (12-18) 18 Respiratory rate source Observation Oxygen Delivery Method Room Air Blood Pressure (90/60-120/80) 151/68 H Blood Pressure Mean 95 Source Monitor Position Semi-Fowlers Blood Pressure Location Right Arm History Since Last Visit- (Skip if this is Patient's initial visit) Left Footwear Regular Shoe Right Footwear Regular Shoe Pain Scale: 0-10 Numeric Is Patient Pain Free? No LT 2ND TOE -Alleviating Factors/Interventions Will continue to monitor Lower Extremity Assessment/ Foot Assessment/ Toe Nail Assessment Right -Posterior Tibial Doppler Monophasic -Dorsalis Pedis Doppler Monophasic -Extremity Color Hemosiderin -Hair Growth on Legs No -Hair Growth on Toes No -Temperature of Extremity Cool -Thick Yes -Discolored Yes -Deformed No -Improper Length & Hygeine No Left -Posterior Tibial Doppler Monophasic -Dorsalis Pedis Doppler Monophasic -Extremity Color Hemosiderin -Hair Growth on Legs No -Hair Growth on Toes No -Temperature of Extremity Cool -Capillary Refill Less than 3 Seconds -Thick Yes -Discolored Yes -Deformed No -Improper Length & Hygeine No Communication Assessment Preferred language [employer] [employer] Required No Able to Read Yes Able to Write Yes Communication Tools None Right Hearing Abillity Normal Left Hearing Abillity Normal Visual Assistive Devices Glasses Teaching Assessment Preferences Verbal Barriers to Learning None Readiness To Learn Excellent Willingness to Engage in Self Management High Activies Readiness to Engage in Self Management High Activities Anxiety Level Calm Cooperation Cooperative Perception Coherent Interest in Health Problem Asks Questions Education Importance Acknowledges Need Does Patient Smoke tobacco or other No substances Is Patient Diabetic No Functional Assessment Recent Decline in Ability to Perform Denies Any Declines WC - Nurse 1 - General Ulcer Measurement Start: 02/17/25 13:23 Freq: Status: Active Protocol: Activity Type Activity Date Activity User E-sign Co-sign Detail Recorded Client Recorded Date Recorded By Document 02/17/25 13:23 KW [id number] 02/17/25 13:42 KW 02/17/25 13:23 Wound Center Nurse 1 #1 LT 2ND TOE -Current Size (cm) - Length 0.9 -Current Size (cm) - Width 1 -Current Size (cm) - Depth 0.1 -Total Square Cm 0.9 -Date of Last Picture (Recall this 02/17/25 field) -Exudate Amt Medium -Exudate Type Serosanguineous -Wound Margin Thickened -Granulation Amt Medium (34-66%) -Granulation Quality Red -Necrosis Amt Medium (34-66%) -Necrotic Tissue Type Adherent Slough -Texture (Shalonda-wound Skin Appearance) Assessed, Localized Edema -Moisture (Shalonda-wound Skin Appearance) Assessed,Dry/ Scaly -Color (Shalonda-wound Skin Appearance) Assessed, Erythema -Temperature (Shalonda-wound Skin No Abnormality Appearance) (Pt Warm) -Tenderness on Palpation (Shalonda-wound No Skin Appearance) -Ulcer Cleansing Soap and Water -Foul Odor after Cleansing No -Anesthetic Used 5% Lidocaine Gel Right Calf (cm) 42 Right Ankle (cm) 23.5 Point of measurement (cm from the medial 41.5 instep) Point of Measurement (cm from the medial 25 instep) WC - Nurse 2 - General Ulcer CM Notes Start: 02/17/25 13:23 Freq: Status: Active Protocol: Activity Type Activity Date Activity User E-sign Co-sign Detail Recorded Client Recorded Date Recorded By Document 02/17/25 13:58 DS [id number] 02/17/25 14:01 DS 02/17/25 13:58 Wound Center Nurse 2 #1 LT 2ND TOE -Time 14:00 -Correct Patient Yes -Correct Side, Site, Position Yes -Correct Procedure Yes -Procedure Performed Yes -Type of Procedure Debridement -Clinical Debridement Subcutaneous -Tissue Removed Subcutaneous -Post Debridement (cm) - Length 0.9 -Post Debridement (cm) - Width 0.9 -Post Debridement (cm) - Depth 0.1 -Total Square (Post) (cm) 0.81 -Area of Debridement (cm) - Length 0.9 -Area of Debridement (cm) - Width 0.9 -Total Square (Area) (cm) 0.81 -Tunneling No -Undermining/Tunneling No -Circular Undermining No -Wound/Ulcer Outcome Not Healed -Ulcer Cleansing Rinsed/ Irrigated with Saline -Foul Odor after Cleansing No -Bioengineered Tissue No -Bleeding Controlled with Pressure -Treatment Response Procedure Tolerated Well -Debridement - Subq, 1st 20sq cm Yes Pain Scale: 0-10 Numeric Is Patient Pain Free? Yes Assessment/Plan Assessment/Plan (1) Non-pressure chronic ulcer of other part of left foot with fat layer exposed: CODE(S): L97.522 - Non-pressure chronic ulcer of other part of left foot with fat layer exposed PLAN: Patient was examined and evaluated. All findings were discussed with the patient. All questions were answered to the patient's satisfaction. Excisional debridement down to and including subcutaneous tissue with a number 3 mm dermal curette to the full-thickness wound to the left distal aspect of the second digit done without incident.. Predebridement measurement was 0.7 x 0.8 x 0.1 cm. Postdebridement measurement is 0.9 x 0.9 x 0.1 cm. The areas were cleaned and patted dry. The area was dressed with Betadine paint followed by dry sterile dressing and compression wrap. Patient was placed in a surgical shoe. Patient will continue antibiotics as prescribed. Educated the patient on decreasing or quitting alcohol as it is causing neuropathy to his bilateral lower extremity. He was understanding of this. Patient will be discharged from the wound care center and follow-up with me in private office for an in office procedure tomorrow at 3 PM consisting of percutaneous flexor tenotomy extensor tenotomy to reduce the pressure from the distal tip of the left second digit. All risk and benefits were discussed in great detail. (2) Other specified peripheral vascular diseases: CODE(S): I73.89 - Other specified peripheral vascular diseases (3) Hammertoe of second toe of left foot: CODE(S): M20.42 - Other hammer toe(s) (acquired), left foot
--- NOTE | 2025-02-18 08:41 | WC ---
PHOTO-LEFT 2ND TOE 02/17/25
== END 2025-02-25 07:51 | disposition home or self-care (01) ==
LOC: WC 13:06
PROVIDERS: PCP Family Medicine; Referring Provider Family Medicine; Visit Provider Podiatrist Foot & Ankle Surgery
DX: I73.89 Other specified peripheral vascular diseases (principal); L97.522 Non-pressure chronic ulcer of other part of left foot with fat layer exposed; M20.42 Other hammer toe(s) (acquired), left foot
CPT/HCPCS: 11042; 99213; G0463

== ENCOUNTER → 2025-02-23 | Outpatient (CLI) | payer OTHER, SELFPAY ==
[2025-02-23 12:53] LABS: AST(SGOT) 29 U/L (<=37); Alanine Aminotransfer ALT/SGPT 43 U/L (<=46); Albumin, Serum 4.2 g/dL (3.4-4.8); Alkaline Phosphatase 56 U/L (40-129); Anion Gap 11 (5-15); BUN 19 mg/dL (4-19); BUN/Creat Ratio 21.6 RATIO (10-20); Calcium,Total 9.1 mg/dL (7.6-11.0); Carbon Dioxide 26.2 mmol/L (21.0-32.0); Chloride 99 mmol/L (98-108); Cholesterol 138 mg/dL (<=200); Globulin 3.2 g/dL (2.2-4.2); Glucose 93 mg/dL (70-99); Low Density Lipoprotein Calc. 57 mg/dL; Potassium 4.5 mmol/L (3.3-5.1); Triglycerides 242 mg/dL; Very Low Density Lipoprotein 48 mg/dL (5-40); cholesterol:hdl ratio screen 4.26
== END | disposition home or self-care (01) ==
LOC: MFPLAB 09:17
PROVIDERS: PCP Family Medicine; Referring Provider Family Medicine; Visit Provider Family Medicine
DX: I10 Essential (primary) hypertension (principal); E11.9 Type 2 diabetes mellitus without complications
CPT/HCPCS: 36415; 80053; 80061; 83036